=== PATIENT | female | born 1970 | race Caucasian/White ===

== ENCOUNTER → 2016-05-12 07:43 | Day surgery (SDC) | payer OTHER ==
--- NOTE | 2016-05-10 15:00 | HP ---
DATE OF ADMISSION: 05/12/2016. AGE: 46-year-old female. ADMITTING DIAGNOSIS: History of ureteral stenosis. PLANNED PROCEDURE: Cystoscopy, possible urethral dilatation with intravenous sedation. HISTORY OF PRESENT ILLNESS: Pastora Townsend is a 46-year-old lady with a history of urethral stenosis . She has recently been complaining of increasing bladder discomfort and difficulty emptying her bl adder. She had a history of urethral stenosis and had undergone urethral dilatation in 2012. PAST MEDICAL HISTORY: Significant for: 1. Diabetes mellitus. 2. Urethral stenosis. 3. Fibromyalgia. MEDICATIONS ON ADMISSION: 1. Metformin 500 mg a day. 2. Vesicare 10 mg a day. 3. Cyclobenzaprine 5 mg at bedtime. ALLERGIES: No known drug allergies. PHYSICAL EXAMINATION GENERAL: Anxious-appearing, middle-aged lady. VITAL SIGNS: Blood pressure 130/70, pulse 115 per minute and regular, oxygen saturation 98 percent, temperature 98.3. CARDIOVASCULAR: Regular rate and rhythm, S1, S2. LUNGS: Clear bilaterally. IMPRESSION: Luiom-ydcde-rnmp-old lady with increasing bladder discomfort and difficulty emptying an d a history of urethral stenosis. PLAN: Planned procedure is cystoscopy, possible urethral dilatation using intravenous sedation. [id number]/[facility] #: [id number]
[~2016-05-12 07:43] MED LIST: Acetaminophen TAB* 325 MG PO PRN; Buffered Lidocaine 1% SYR 3ML* 3 ML/SYR SYRINGE INTRADERM ONE; Famotidine IV* 10 MG/ML 2 ML (20 mg) ONE; KETAMINE HCL* 50 MG/ML 10 ML VIAL ONE; Midazolam* 1 MG/ML 2 ML VIAL (2 MG) ONE; Ondansetron INJ* 2 MG/ML VIAL IV PRN; PROCHLORPERAZINE INJ 5 MG/ML 2 ML VIAL IV PRN; cefTRIAXone(*) 2 GM ADDV.VIAL IVPB ONE; diPHENhydraMINE IV* 50 MG/ML 1 ml VIAL (BENADRYL) ONE; fentaNYL* 50 MCG/ML 2 ML VIAL (100 MCG VIAL) IV PRN; fentaNYL* 50 MCG/ML 2 ML VIAL (100 MCG VIAL) ONE; oxyCODONE/Acetamin 5/325 MG* TAB PO PRN
[2016-05-12 08:24] LABS: UR Preg Internal Control QC Line Present
[2016-05-12 11:13] VITALS: BP 132/79
--- NOTE | 2016-05-13 00:21 | OP ---
DATE OF OPERATION: 05/12/16 - SDS DATE OF : [birth year] - AGE: 46 years, female. SURGEON: Dr. Mcgrath ANESTHESIOLOGIST: Dr. Patricia. ANESTHESIA: Intravenous sedation. PRE-OP DIAGNOSES: 1. Voiding dysfunction. 2. Urethral stenosis. POST-OP DIAGNOSES: 1. Voiding dysfunction. 2. Urethral stenosis. OPERATIVE PROCEDURE: Cystoscopy and urethral dilation. COMPLICATIONS: None. POSTOPERATIVE CONDITION: Stable. BLOOD LOSS: None. OPERATIVE FINDINGS: 1. Urethral stenosis (moderate). 2. No evidence of any mucosal lesions noted in bladder. 3. Two areas of extrinsic impression noted on posterior bladder wall and floor of bladder (possibly related to uterine fibroids). INDICATIONS: Pastora Townsend is a 46-year-old lady with a history of urethral stenosis. She recently had some increasing difficulty with bladder-related symptoms and feels that she has a recurrent stenosis. She desires cystoscopy, possible urethral dilation with intravenous sedation and is now being brought in for the same. DESCRIPTION OF PROCEDURE: After induction of intravenous sedation, the patient was placed in dorsal lithotomy position. Sequential compression devices were in place and functioning. Initial visualization revealed a moderate degree of urethral stenosis. I elected to do a cystoscopy and then do the urethral dilation later. Initial cystoscopy revealed normally located right and left ureteral orifices with clear efflux noted. There was no evidence of any mucosal lesions noted within the bladder. In the posterior bladder wall and the floor of the bladder , there were two areas of extrinsic pressure noted resulting in a bulging of the mucosa in that site. This could be related to uterine fibroids, but the mucosa was completely normal in these areas. The remainder of the bladder was unremarkable. After the completion of the cystoscopy, urethral dilation was carried out to 30-Mosotho and the bladder was then emptied at the end of the procedure. The patient tolerated the procedure satisfactorily and was transferred back to the recovery area in stable condition. CC: Dr. Rufus Doe* [id number]/[facility] #: [id number] TAAL
== END | disposition home or self-care (01) ==
LOC: OR 07:43
PROVIDERS: ATTEND Urology
DX: N35.9 Urethral stricture, unspecified (principal); E11.9 Type 2 diabetes mellitus without complications; M79.7 Fibromyalgia
CPT/HCPCS: 81025; J0696; J1200; J2250; J3010

== ENCOUNTER 2016-06-01 08:55 | Day surgery (SDC) | payer OTHER ==
--- NOTE | 2016-05-28 21:01 | HP ---
HISTORY AND PHYSICAL EXAMINATION: DATE OF SURGERY/ADMISSION: 06/01/16 ATTENDING SURGEON: Dr. Garcia. PROCEDURE: Right knee arthroscopic surgery CHIEF COMPLAINT: Right knee pain. HISTORY OF PRESENT ILLNESS: The patient is a very pleasant 46-year-old female who presents today for history and physical examination prior to undergoing a right arthroscopic evaluation of the right knee. In brief, the patient has had knee pain since November 2015. She underwent an MRI on 05/20/16, which showed a medial meniscus tear and the patient has elected to undergo arthroscopic evaluation with a partial medial meniscectomy due to her failed conservative treatment with physical therapy, RICE, and NSAIDs. PAST MEDICAL HISTORY: 1. Hypertension. 2. Diabetes, type 2. 3. Depression. 4. Fibromyalgia. 5. Asthma. 6. Hiatal hernia. 7. Dysthymic disorder. 8. Endometriosis. 9. Raynaud's disease. 10. Rosacea. 11. Insomnia. 12. Psoriasis. 13. Irritable bowel syndrome. PAST SURGICAL HISTORY: 1. Orthognathic jaw surgery, 2003. 2. Laparoscopy several times for endometriosis. 3. Cystoscopies with urethral dilatation in 2014 and 2016. MEDICATIONS: 1. Metformin 1000 mg p.o. b.i.d. 2. Cyclobenzaprine 5 mg 1 tablet by mouth 3 times a day p.r.n. 3. Xanax 0.5 mg 1/2 tab to 1 tablet as needed at bedtime. 4. Dicyclomine HCl 20 mg 1 tablet by mouth up to 4 times a day. 5. Metformin 600 mcg p.o. q.h.s. p.r.n. 6. Xopenex HFA 40 mcg/act 2 puffs q.i.d. p.r.n. 7. VESIcare 10 mg 1 tablet by mouth daily q.h.s. 8. Sulfacetamide solution for acne 10% daily. 9. Dulera 200/5 mcg/act 2 unit puffs twice a day. 10. Albuterol nebulizer p.r.n. 11. Lo Loestrin Fe 1 mg/10 mcg daily. 12. Azelaic acid topically to face at bedtime. 13. Lansoprazole 20 mg by mouth q.h.s. p.r.n. ALLERGIES: 1. MORPHINE. 2. DILAUDID. 3. SINGULAIR. FAMILY MEDICAL HISTORY: Positive for diabetes, cardiac disease, and cancer. SOCIAL HISTORY: The patient lives with her spouse. 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 She has rare alcohol use. No tobacco use. REVIEW OF SYSTEMS: General: Negative for fevers, chills, or night sweats. History of anesthesia causing nausea. HEENT: Negative for headache, lightheadedness, or syncopal episodes. Integumentary: Negative for abrasions, lesions, open wounds, or sores. Cardiothoracic: Negative for chest pain, palpitations, or edema. Positive for hypertension. Pulmonary: Negative for shortness of breath, chronic cough, or COPD. GI: Negative for nausea, vomiting , constipation, diarrhea, or GERD. : Negative for nocturia, urinary frequency, urgency, history of UTIs, or kidney problems. Musculoskeletal: Positive for right knee pain. Neurologic: Negative for paresthesias, numbness. No history of seizure, stroke, or epilepsy. Endocrine: Negative for thyroid issues. Positive for diabetes type 2 recently diagnosed. Hematologic: Negative for easy bruising, anemia, or excessive bleeding. No history of DVTs or PEs. Infectious Disease: Negative for MRSA, hepatitis C, or HIV. PHYSICAL EXAMINATION GENERAL: Well appearing, in no acute distress. Alert and oriented. Mildly anxious. VITAL SIGNS: Pulse rate is in the 90s, blood pressure 140/82, weight 140 pounds , height 67 inches. HEENT: Normocephalic, atraumatic. NECK: Supple. EOMI. PULMONARY: Lungs: Clear to auscultation bilaterally. No crackles, rhonchi, or wheezes. CARDIAC: Regular rate and rhythm. No murmurs, gallops, or rubs. Mild tachycardia. ABDOMEN: Nondistended. Negative CVA tenderness bilaterally. NEUROLOGIC: Alert and oriented x3. Cranial nerves grossly intact. Sensation is intact to light touch, bilateral lower extremities. MUSCULOSKELETAL: Range of motion in the bilateral knees of 0 to 120. No joint effusion seen in bilateral knees. Sensation is intact to bilateral lower extremities grossly. Posterior tibial pulses 2+ bilaterally. Antalgic gait, lightly favoring the right side. RADIOGRAPHS: MRI dated 05/20/16 shows a medial meniscal tear. IMPRESSION: The patient is a very pleasant 46-year-old female who has elected to undergo a right knee arthroscopic evaluation with partial medial meniscectomy by Dr. Michael Garcia on 06/01/16. Postoperatively, the patient was prescribed Ultram for pain management as she has had reactions with narcotics in the past. Several questions were answered. The patient will call us if any other issues arise. She will continue to monitor her blood sugars, which at home have been between 80 to 150 with the addition [place] [id number]/[facility] #: [id number] MTDChristopher
[~2016-06-01 08:55] MED LIST changes: -Acetaminophen TAB* 325 MG PO PRN; +Bupivacaine 0.5% W/EPI SDV* 30 ML VIAL ONE; -Famotidine IV* 10 MG/ML 2 ML (20 mg) ONE; -KETAMINE HCL* 50 MG/ML 10 ML VIAL ONE; -Midazolam* 1 MG/ML 2 ML VIAL (2 MG) ONE; -Ondansetron INJ* 2 MG/ML VIAL IV PRN; -PROCHLORPERAZINE INJ 5 MG/ML 2 ML VIAL IV PRN; -cefTRIAXone(*) 2 GM ADDV.VIAL IVPB ONE; -diPHENhydraMINE IV* 50 MG/ML 1 ml VIAL (BENADRYL) ONE; -fentaNYL* 50 MCG/ML 2 ML VIAL (100 MCG VIAL) IV PRN; -fentaNYL* 50 MCG/ML 2 ML VIAL (100 MCG VIAL) ONE; -oxyCODONE/Acetamin 5/325 MG* TAB PO PRN
[2016-06-01] MEDS ORDERED: ceFAZolin 2 GM PREMIX (*) 2 GM/50 ML BAG IVPB ONE (09:08)
[2016-06-01 09:24] LABS: Manual Entry Verification AS; UR Preg Internal Control QC Line Present; UR Preg Kit Lot# 6060104
[2016-06-01] MEDS ORDERED: Midazolam* 1 MG/ML 5 ML VIAL (5 MG) ONE (10:51)
[2016-06-01] MEDS ORDERED: Propofol* 10 MG/ML 20 ML BTL IV PUSH ONE (10:58)
[2016-06-01] MEDS ORDERED: fentaNYL* 50 MCG/ML 2 ML VIAL (100 MCG VIAL) ONE ×3 (10:58→12:51)
[2016-06-01] MEDS ORDERED: Dexamethasone IV* 4 MG/ML 1 ML (4 MG) ONE (11:03)
[2016-06-01] MEDS ORDERED: Ketorolac INJ* 30 MG/ML 1 ML VIAL ONE (11:38)
[2016-06-01] MEDS ORDERED: Ondansetron INJ* 2 MG/ML VIAL ONE (11:38)
[2016-06-01] MEDS ORDERED: HYDROcodone/ACETAMIN 5-325 MG* 1 TAB PO PRN (12:02)
[2016-06-01] MEDS ORDERED: DiMENhydriNATE IV* 50 MG/ML VIAL IV PUSH PRN (12:02)
[2016-06-01] MEDS ORDERED: Ondansetron INJ* 2 MG/ML VIAL IV PRN (12:02)
[2016-06-01] MEDS: fentaNYL* 50 MCG/ML 2 ML VIAL (100 MCG VIAL) IV PRN ×2 (12:52→13:22)
[2016-06-01] MEDS ORDERED: HYDROcodone/ACETAMIN 5-325 MG* 1 TAB ONE (13:44)
[2016-06-01 14:08] VITALS: BP 126/78
--- NOTE | 2016-06-02 14:17 | OP ---
DATE OF OPERATION: 06/01/16 - [facility] DATE OF : 68 SURGICAL CARE: Right knee. SURGEON: Michael Garcia MD. ASSISTANTS: TONY Rebollar ANESTHESIOLOGIST: Dr. Sumit Spears ANESTHESIA: LMA, general. PRE-OP DIAGNOSIS: Right knee medial meniscal tear. POST-OP DIAGNOSIS: Right knee medial meniscal tear and cartilage injury medial femoral condyle. OPERATIVE PROCEDURE: Right knee partial medial meniscectomy and chondroplasty, medial femoral condyle. COMPLICATIONS: There were no complications. DRAINS: There were no drains. TOURNIQUET: Tourniquet control was utilized on the right leg and the condition was stable to the recovery room. OPERATIVE INDICATIONS: Persistent pain following an injury last summer when she was stepping high over a fence and pivoting on her right knee. The MRI scan shows medial meniscal tear and findings on the medial femoral condyle. DESCRIPTION OF PROCEDURE: The patient was brought to the operating room and placed on the operating table in a supine position. Following the administration of the anesthetic, examination of the right knee under anesthesia showed stable MCL, LCL, Rubén, and posterior drawer. The right leg was wrapped to the proximal thigh tourniquet and prepped from the tourniquet to the foot and then draped free and carefully sealed off in the usual fashion for arthroscopic surgery of the knee. The leg, ankle, and foot portion was sealed off with an impermeable drape with a Vi- Drape wrapped around the calf at the top of that. The universal protocol time-out was completed and we all agreed and we proceeded. The knee, leg, ankle, and foot were exsanguinated with a Ever tourniquet. The thigh tourniquet elevated to 275. The knee was set up for arthroscopy with the arthroscope lateral to patellar tendon, probe, and operating instruments medial to the patellar tendon and an in-flow catheter superomedial to the patella. The joint did not have extra fluid within it. The survey of the joints show that the patellofemoral joint was clear. The medial gutter and lateral gutters were clear. The lateral femoral condyle, lateral meniscus, lateral tibial plateau normal. The ACL and PCL were normal. The medial femoral condyle had an area of cartilage fissuring with flaps that was 1 cm in width and 2 cm in length on the lateral surface of the weightbearing area of the medial femoral condyle. The medial meniscus was torn posteriorly in complex fashion. Once the pathology was evident, I proceeded with a partial medial meniscectomy from the medial portal and posteromedial portal was also made, guided by a 22-gauge needle and then the arthroscopic shaver straight 3.5 was inserted through this portal for posterior peripheral meniscectomy. The medial femoral condyle was treated with chondroplasty trying to be nonaggressive and removing just the loose portion of the flaps that were along this fissure. Once the surgical care was complete, then final photographs were obtained. The knee was irrigated with another 6 L of saline irrigation solution, then emptied, and instilled with Marcaine 0.5% with epinephrine, 28 to 30 mL. The portals were closed with interrupted 3-0 Surgipro and the dressing applied after washing and drying with Betadine-soaked release, sterile gauze, sterile Webril, cryotherapy cuff, ABD pads, and a 6- inch Aditya bandage loosely applied. The patient's pulses at the end of the case were noted to be 2+ posterior tibial and dorsalis pedis. The procedure was well tolerated. Postoperative plan with cartilage injury on the medial femoral condyle, I have suggested walking and weightbearing as tolerated on the right with crutches for the next few weeks. [id number]/[facility] #: [id number] TALA
== END 2016-06-01 14:35 | disposition home or self-care (01) ==
LOC: OR 08:55
PROVIDERS: ATTEND Orthopaedic Surgery
DX: S83.241A Other tear of medial meniscus, current injury, right knee, initial encounter (principal); S83.31XA Tear of articular cartilage of right knee, current, initial encounter; E11.9 Type 2 diabetes mellitus without complications; I10 Essential (primary) hypertension; J45.909 Unspecified asthma, uncomplicated; X50.0XXA Overexertion from strenuous movement or load, initial encounter; Y92.89 Other specified places as the place of occurrence of the external cause
CPT/HCPCS: 81025; 88304; J0690; J1100; J1885; J2250; J2405; J2704; J3010

== ENCOUNTER 2017-07-02 21:21 | Emergency (ER) | payer OTHER ==
[2017-07-02] MEDS ORDERED: predniSONE TAB* 20 MG PO ONE (22:04)
[2017-07-02 22:31] LABS: ABS Basophils 0 10^3/ul (0-0.2); ABS Eosinophils 0 10^3/ul (0-0.6); ABS Lymphocytes 2.2 10^3/ul (1.0-4.8); ABS Monocytes 0.6 10^3/ul (0-0.8); ABS Neutrophils 3.9 10^3/ul (1.5-7.7); ABS Nucleated RBC 0 10^3/ul; Eosinophil % 0.7 % (0-6); Hematocrit 39 % (35-47); Hemoglobin 13.7 g/dl (12.0-16.0); Lymphocyte % 32.1 % (25-47); Mean Corpuscular HGB Conc 35 g/dl (31-36); Mean Corpuscular Hemoglobin 33 pg (27-31); Mean Corpuscular Volume 94 fL (80-97); Mean Platelet Volume 8.9 um3 (7.4-10.4); Nucleated Red Blood Cells % 0; Platelet Count 206 10^3/ul (150-450); Red Blood Count 4.19 10^6/ul (4.0-5.4); Red Cell Distribution Width 13 % (10.5-15); White Blood Count 6.7 10^3/ul (3.5-10.8)
--- NOTE | 2017-07-02 22:44 | ED ---
Respiratory - HPI Summary HPI Summary: 47-year-old female presents with asthma attack today. She states she was on the couch and had an asthma attack. She states she took her inhaler. She states the shortness of breath resolved but now she feels jittery due to the inhaler use. Her normal triggers are exercise and infection. She states she does not feel that she has an upper resp infection. She states she was coughing with the asthma attack but that has since resolved. She denies any chest pain. She denies a sore throat. She denies any fever. She has a sinus congestion. She denies any bowel pain nausea vomiting diarrhea. She is a type 1 diabetic. She is on control. She denies any family history of blood clots. - History of Current Complaint Chief Complaint: EDShortnessOfBreath Stated Complaint: SOB Time Seen by Provider: 07/02/17 21:52 Pain Intensity: 0 - Allergy/Home Medications Allergies/Adverse Reactions: Allergies Allergy/AdvReac Type Severity Reaction Status Date / Time hydromorphone Allergy Headache Verified 07/02/17 21:27 montelukast [From Singulair] Allergy See Comment Verified 07/02/17 21:27 morphine Allergy Headache Verified 07/02/17 21:26 PMH/Surg Hx/FS Hx/Imm Hx Endocrine/Hematology History: Reports: Hx Diabetes - recent Denies: Hx Anemia - MILD ANEMIA, Hx Unexplained Bleeding Cardiovascular History: Reports: Hx Hypertension - pre-hypertension Denies: Hx Aneurysm, Hx Angina, Hx Angioplasty, Hx Auto Implanted Cardiovert Defib, Hx Cardiac Arrest, Hx Cardiomegaly, Hx Congenital Heart Disease, Hx Congestive Heart Failure, Hx Coronary Artery Disease, Hx Deep Vein Thrombosis, Hx Embolism, Hx Hypercholesterolemia, Hx Hypotension, Hx Pacemaker/ICD, Hx Peripheral Vascular Disease, Hx Rheumatic Fever, Hx Syncope, Hx Valvular Heart Disease, Other Cardiovascular Problems/Disorders Respiratory History: Reports: Hx Asthma - will bring inhalers Denies: Hx Chronic Bronchitis, Hx Chronic Obstructive Pulmonary Disease (COPD ), Hx Cystic Fibrosis, Hx Lung Cancer, Hx Pleural Effusion, Hx Pneumonia, Hx Pulmonary Edema, Hx Pulmonary Embolism, Hx Seasonal Allergies, Hx Sleep Apnea, Other Respiratory Problems/Disorders GI History: Reports: Hx Gastroesophageal Reflux Disease, Hx Hiatal Hernia, Hx Irritable Bowel Denies: Other GI Disorders History: Reports: Other Problems/Disorders - overactive bladder Musculoskeletal History: Denies: Hx Arthritis, Hx Rheumatoid Arthritis, Hx Back Problems, Hx Bursitis , Hx Congenital Bone Abnormalities, Hx Fibromyalgia, Hx Gout, Hx Orthopedic Injury, Hx Osteoporosis, Hx Scoliosis, Hx Tendonitis, Other Musculoskeletal History - R/O FIBROMYALGIA Sensory History: Denies: Hx Contacts or Glasses, Hx Hearing Aid Opthamlomology History: Denies: Hx Contacts or Glasses Neurological History: Reports: Hx Migraine, Hx Nerve Disease - BELLS PALSY 1996 Denies: Hx Dementia, Hx Developmental Delay, Hx Headaches, Hx Seizures, Hx Spinal Cord Injury, Hx Transient Ischemic Attacks (TIA), Other Neuro Impairments /Disorders Psychiatric History: Reports: Hx Anxiety - SEEDonaldo COY, Hx Depression - SEES Denies: Hx Attention Deficit Hyperactivity Disorder, Hx Eating Disorder, Hx Panic Disorder, Hx Post Traumatic Stress Disorder, Hx Inpatient Treatment, Hx Community Mental Health Tx, Hx Schizophrenia, Hx Bipolar Disorder, Hx Suicide Attempt, Hx of Violent Episodes Against Others, Hx Substance Abuse, Other Psychiatric Issues/Disorders - Cancer History Hx Chemotherapy: No Hx Radiation Therapy: No - Surgical History Surgery Procedure, Year, and Place: WISDOM TEETH. LASER LAP FOR ENDOMETROSIS, 1999, [facility] [place]. LOWER JAW SURGERY, 2002, [facility] [place]. LEEP, 1988. URETHERAL DILATION 2013 , [facility] [place] x2 2016. lasik eye surgery. LASIX -EYE Hx Anesthesia Reactions: Yes - nausea post op Infectious Disease History: No Infectious Disease History: Denies: Hx Clostridium Difficile, Hx Hepatitis, Hx Human Immunodeficiency Virus (HIV), Hx of Known/Suspected MRSA, Hx Shingles, Hx Tuberculosis, Hx Known/ Suspected VRE, Hx Known/Suspected VRSA, History Other Infectious Disease, Traveled Outside the [place] in Last 30 Days - Family History Known Family History: Positive: None Negative: Blood Disorder - Social History Alcohol Use: Rare Alcohol Amount: 2 PER MONTH Substance Use Type: Reports: None Smoking Status (MU): Never Smoked Tobacco Have You Smoked in the Last Year: No Review of Systems Negative: Fever Negative: Chest Pain Positive: Shortness Of Breath, Cough All Other Systems Reviewed And Are Negative: Yes Physical Exam Triage Information Reviewed: Yes Vital Signs On Initial Exam: Initial Vitals Temp Pulse Resp BP Pulse Ox 98.4 F 112 22 147/79 100 07/02/17 21:24 07/02/17 21:24 07/02/17 21:24 07/02/17 21:24 07/02/17 21:24 Vital Signs Reviewed: Yes Appearance: Positive: Well-Appearing Skin: Positive: Warm, Dry Head/Face: Positive: Normal Head/Face Inspection Eyes: Positive: Normal, EOMI, BRYCE, Conjunctiva Clear ENT: Positive: Normal ENT inspection, Pharynx normal, TMs normal Respiratory/Lung Sounds: Positive: Clear to Auscultation, Breath Sounds Present Cardiovascular: Positive: Normal, RRR Abdomen Description: Positive: Nontender, Soft Bowel Sounds: Positive: Present Musculoskeletal: Positive: Normal Neurological: Positive: Normal Psychiatric: Positive: Normal Diagnostics - Vital Signs Vital Signs Temp Pulse Resp BP Pulse Ox 07/02/17 21:56 89 20 142/73 100 07/02/17 21:51 103 100 07/02/17 21:49 142/73 07/02/17 21:24 98.4 F 112 22 147/79 100 - Laboratory Lab Results: Lab Results 07/02/17 Range/Units 22:20 WBC 6.7 (3.5-10.8) 10^3/ul RBC 4.19 (4.0-5.4) 10^6/ul Hgb 13.7 (12.0-16.0) g/dl Hct 39 (35-47) % MCV 94 (80-97) fL MCH 33 H (27-31) pg MCHC 35 (31-36) g/dl RDW 13 (10.5-15) % Plt Count 206 (150-450) 10^3/ul MPV 8.9 (7.4-10.4) um3 Neut % (Auto) 58.1 (38-83) % Lymph % (Auto) 32.1 (25-47) % Noble % (Auto) 8.7 H (0-7) % Eos % (Auto) 0.7 (0-6) % Baso % (Auto) 0.4 (0-2) % Absolute Neuts (auto) 3.9 (1.5-7.7) 10^3/ul Absolute Lymphs (auto) 2.2 (1.0-4.8) 10^3/ul Absolute Monos (auto) 0.6 (0-0.8) 10^3/ul Absolute Eos (auto) 0 (0-0.6) 10^3/ul Absolute Basos (auto) 0 (0-0.2) 10^3/ul Absolute Nucleated RBC 0 10^3/ul Nucleated RBC % 0 Result Diagrams: 07/02/17 22:20 07/02/17 22:20 Lab Statement: Any lab studies that have been ordered have been reviewed, and results considered in the medical decision making process. - EKG No standard instances Cardiac Rate: NL EKG Rhythm: Sinus Rhythm ST Segment: Normal EKG Interpretation: normal sinus rhythm Re-Evaluation - Re-Evaluation First Eval Re-Evaluation Time: 23:02 Change: Unchanged Comment: lungs CTA Disposition - Course Course Of Treatment: 47-year-old female presents with asthma attack today. She states she was on the couch and had an asthma attack. She states she took her inhaler. She states the shortness of breath resolved but now she feels jittery due to the inhaler use. Her normal triggers are exercise and infection. She states she does not feel that she has an upper resp infection. She states she was coughing with the asthma attack but that has since resolved. She denies any chest pain. She denies a sore throat. She denies any fever. She has a sinus congestion. She denies any bowel pain nausea vomiting diarrhea. She is a type 1 diabetic. She is on control. She denies any family history of blood clots. On exam lungs clear to auscultation. ekg normal sinus rhythm. labs wnl. chest xray normal. will prescribe steriod for next couple days and have follow up with primary. told to watch sugars as are going to increase. patient understand and agrees with plan. - Differential Dx - Cardiopulmonary Differential Diagnoses - Cardiopulmonary: Asthma, Bronchitis, Lower Resp Infection - Diagnoses Provider Diagnoses: Asthma Discharge - Sign-Out/Discharge Documenting (check all that apply): Discharge - Discharge Plan Condition: Good Disposition: HOME Patient Education Materials: Asthma (ED) Referrals: Rufus Doe MD [Primary Care Provider] - Additional Instructions: Take steroid once a day for 4 more days starting tomorrow, watch sugars as will increase for next 5 days Take Tylenol or ibuprofen for pain every 6 hours Follow up with primary as needed Return to ED if develop any new or worsening symptoms - Billing Disposition and Condition Condition: GOOD Disposition: HOME
[2017-07-02 22:48] LABS: EGFR Non-African American 50.9 (>60)
[2017-07-02 23:14] VITALS: BP 141/63
--- NOTE | 2017-07-03 11:47 | RAD ---
INDICATION: Asthma attack. Shortness of breath. COMPARISON: January 16, 2016 TECHNIQUE: Dual energy PA and routine lateral views of the chest were obtained. REPORT: Clear lungs and pleural spaces. Negative for pneumothorax. The heart, pulmonary vasculature, and mediastinal contours are unremarkable. Unremarkable osseous structures and soft tissue contours. IMPRESSION: No evidence for acute intrathoracic disease.
== END 2017-07-02 23:14 | disposition home or self-care (01) ==
LOC: ED 21:21
DX: J45.909 Unspecified asthma, uncomplicated (principal); E11.9 Type 2 diabetes mellitus without complications; R06.02 Shortness of breath; Z86.79 Personal history of other diseases of the circulatory system; Z87.19 Personal history of other diseases of the digestive system
CPT/HCPCS: 36415; 71046; 80053; 84484; 85025; 85379; 93005; 99283; J7512